=== PATIENT | female | born 1955 | race Caucasian/White ===

== ENCOUNTER 2017-05-15 23:35 | Inpatient (IN) | payer OTHER ==
[~2017-05-15] VITALS: Ht 167.6 cm; Wt 72.3 kg
[2017-05-15] MEDS: 1/2 NS + KCL 20 MEQ INJ 1,000 ML IV SCH (00:15)
[~2017-05-15 23:35] MED LIST: ACETAMINOPHEN 325 MG TAB PO PRN; ALBUAER3 INH; HYDROmorphone HCL PF 1 MG/ML VIAL IV PUSH PRN; MAGNESIUM HYDROXIDE SUSP 30 ML CUP PO PRN; NALOXONE HCL 0.4 MG/ML AMP IV PRN; ONDANSETRON HCL 4 MG/2 ML VIAL IVP PRN; RESP: ALBUTEROL 2.5 MG/IPRATROPIUM 0.5 MG NEB (PRN) NEB; SODIUM CHLORIDE 0.9% FLUSH 10 ML FLUSH IV FLUSH PRN; SPIRCAP INH; TEMAZEPAM 15 MG CAP PO PRN
[2017-05-16] VITALS (7 sets, daily range): BP systolic 114–141; BP diastolic 60–77; PULSE 56–89; RESP 16–18; TEMP 95.4–97.4; O2SAT 95–97
[2017-05-16 08:12] LABS: AUTOMATED NEUTROPHIL # 1.8 TH/MM3 (1.8-7.7); BASOPHIL % 1.2 % (0.0-2.0); EOSINOPHIL # 0.1 TH/MM3 (0-0.4); EOSINOPHIL % 2.9 % (0.0-4.0); HEMATOCRIT 39.7 % (35.0-46.0); HEMO FLAGS DIFF FINAL; LYMPH % 30.3 % (9.0-44.0); MEAN CELL VOLUME 94.9 FL (80.0-100.0); MEAN CORPUSCULAR HEMOGLOBIN 33.1 PG (27.0-34.0); MEAN CORPUSCULAR HGB CONC 34.9 % (32.0-36.0); MONO % 11.1 % (0.0-8.0); NEUT % 54.5 % (16.0-70.0); PLATELET COUNT 189 TH/MM3 (150-450); RED BLOOD COUNT 4.18 MIL/MM3 (4.00-5.30); RED CELL DISTRIBUTION WIDTH 13.3 % (11.6-17.2); WHITE BLOOD COUNT 3.3 TH/MM3 (4.0-11.0)
[2017-05-16 08:49] LABS: BICARBONATE 26.8 MEQ/L (21.0-32.0); POTASSIUM 3.8 MEQ/L (3.5-5.1)
[2017-05-16 08:53] LABS: INDIRECT BILIRUBIN 1.1 MG/DL (0.0-0.8); TOTAL BILIRUBIN ADULT 3.2 MG/DL (0.2-1.0)
[2017-05-16] MEDS: SODIUM CHLORIDE 0.9% FLUSH 10 ML FLUSH IV FLUSH SCH ×2 (09:00→21:00)
--- NOTE | 2017-05-16 09:08 | RADRPT ---
EXAM DATE/TIME: 05/16/2017 08:10 [facility] COMPARISON: CT ABDOMEN & PELVIS W CONTRAST, May 15, 2017, 20:15. INDICATIONS : Obstruction. MEDICAL HISTORY : None. SURGICAL HISTORY : Tonsillectomy. ENCOUNTER: Initial ACUITY: 1 day PAIN SCORE: 5/10 LOCATION: Upper abdomen TECHNIQUE: Multiplanar, multisequence magnetic resonance imaging of the abdomen was performed. High-resolution 3D dataset was utilized to reconstruct maximum-intensity projection (MIP) images. FINDINGS: INTRAHEPATIC BILE DUCTS: Within normal limits. No significant anatomical variant is present. EXTRAHEPATIC BILE DUCTS: The common bile duct measures 5-6mm No stone or filling defect is identified. GALLBLADDER: Demonstrates cholelithiasis with gallbladder wall thickening. LIVER: Normal size and signal intensity. No concerning liver lesion is identified on this non-contrast exam. Hepatic cysts. PANCREAS: The main pancreatic duct is normal in size. There is no significant anatomical variant. Signal inte nsity is within normal limits. No mass is visualized on this non-contrast exam. OTHER: The remaining visualized structures demonstrate no acute abnormality on this non-contrast exam. Small bilateral renal cysts. CONCLUSION: 1. Cholelithiasis with gallbladder wall thickening. 2. No intra-or extrahepatic delayed ductal dilatation. 3. Hepatic and bilateral renal cysts. Cirilo Helms MD on May 16, 2017 at 9:01 Board Certified Radiologist. This report was verified electronically.
[2017-05-16] MEDS: TIOTROPIUM BROMIDE 18 MCG INH INH SCH (09:43)
[2017-05-16] MEDS: 1/2 NS + KCL 20 MEQ INJ 1,000 ML IV SCH ×2 (10:18→21:50)
--- NOTE | 2017-05-16 11:42 | HHI.HP ---
HPI Service CP Hospitalists Primary Care Physician No Primary Care Physician Admission Diagnosis Abdominal pain, elevated LFTs Chief Complaint: Abdominal pain History of Present Illness Ms. Levin is a pleasant 61 y/o female with COPD, chronic tobacco use, and chronic alcohol use. Pt presented to the ED at [facility] ED on 05/15/17 with complaints of abdominal pain that began yesterday around noon. She states that she had eaten an omelet yesterday morning around 10AM and felt fine up until about lunch time and she started having some mid to upper abdominal bloating and pressure-like discomfort. She states that she tried taking some Prilosec and gas pills but did not have much relief. She states that she had some minimal relief with belching. Pt denies any nausea/vomiting, diarrhea, constipation, melena or BRBPR. The pain was constant for several hours and this prompted her to come to the ED for further evaluation. Her labs in the ED noted elevated LFTs with Tbili 2.0, AST 755, ALT 404, AlkPhos 195. CT Abd/pelvis was obtained which noted periportal edema versus intrahepatic biliary distension, no obvious cause for obstruction. Pt was transferred to [facility] for further evaluation and GI consultation. Her repeat labs today with noted Tbili 3.2, DBili 2.1, AST 740, ALT 632, AlkPhos 233. MRCP noted cholelithiasis with gallbladder wall thickening but no intra-or extrahepatic delayed ductal dilatation, and hepatic and bilateral renal cysts. Pt reports that since she received pain medication in the ED she has not had any further abdominal pain. Pt is anxious to eat something. Review of Systems Constitutional: DENIES: Fever, Chills Eyes: DENIES: Vision loss Ears, nose, mouth, throat: DENIES: Hearing loss Respiratory: DENIES: Shortness of breath Cardiovascular: DENIES: Chest pain, Palpitations Gastrointestinal: COMPLAINS OF: Abdominal pain, DENIES: Black stools, Bloody stools, Diarrhea, Nausea, Reflux, Vomiting Genitourinary: DENIES: Urinary incontinence, Dysuria Musculoskeletal: DENIES: Back pain, Neck pain Integumentary: DENIES: Rash Neurologic: DENIES: Headache, Localized weakness Psychiatric: DENIES: Confusion Past Family Social History Past Medical History Alcohol abuse Tobacco abuse COPD Past Surgical History Tonsillectomy Reported Medications Spiriva Handihaler (Tiotropium Inh) 18 Mcg Cap 18 Mcg INH DAILY 1 capsule = 18 mcg Proair Hfa 8.5 GM Inh (Albuterol Sulfate) 90 Mcg/Act Aer 1 Puff INH Q4H PRN 108 mcg/actuation Allergies: Coded Allergies: No Known Allergies (Unverified , 05/15/17) Family History Noncontributory Social History (+)Alcohol abuse, pt drinks 2-3 vodka drinks daily, for many years (+)Tobacco use, 1ppd since age 14 Denies any illicit drug use Pt is from [place], she has lived in [place] for 9 years. 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 HEENT: Atraumatic. Normocephalic. No temporal or scalp tenderness. No scleral icterus. Airway patent. NECK: Trachea midline, supple, nontender. CARDIO: Regular. RESP: CTA bilaterally. No wheezes, rales, or rhonchi. ABD: +BS, soft, non-tender, nondistended. EXT: Extremities without clubbing, cyanosis, or edema. NEURO: Awake and alert. Motor and sensory grossly within normal limits. Normal speech. Laboratory Laboratory Tests Test 05/16/17 07:40 White Blood Count 3.3 Red Blood Count 4.18 Hemoglobin 13.8 Hematocrit 39.7 Mean Corpuscular Volume 94.9 Mean Corpuscular Hemoglobin 33.1 Mean Corpuscular Hemoglobin 34.9 Concent Red Cell Distribution Width 13.3 Platelet Count 189 Mean Platelet Volume 8.1 Neutrophils (%) (Auto) 54.5 Lymphocytes (%) (Auto) 30.3 Monocytes (%) (Auto) 11.1 Eosinophils (%) (Auto) 2.9 Basophils (%) (Auto) 1.2 Neutrophils # (Auto) 1.8 Lymphocytes # (Auto) 1.0 Monocytes # (Auto) 0.4 Eosinophils # (Auto) 0.1 Basophils # (Auto) 0.0 CBC Comment DIFF FINAL Differential Comment Sodium Level 140 Potassium Level 3.8 Chloride Level 107 Carbon Dioxide Level 26.8 Anion Gap 6 Blood Urea Nitrogen 10 Creatinine 0.99 Estimat Glomerular Filtration 57 Rate Random Glucose 83 Calcium Level 7.6 Total Bilirubin 3.2 Direct Bilirubin 2.1 Indirect Bilirubin 1.1 Aspartate Amino Transf 740 (AST/SGOT) Alanine Aminotransferase 632 (ALT/SGPT) Alkaline Phosphatase 233 Total Protein 5.8 Albumin 3.2 Result Diagram: 05/16/17 0740 05/16/17 0740 Imaging Last Impressions Cholangiopancreatography MRI 05/16/17 0000 Signed Impressions: Service Date/Time: Thursday, May 16, 2017 08:10 - CONCLUSION: 1. Cholelithiasis with gallbladder wall thickening. 2. No intra-or extrahepatic delayed ductal dilatation. 3. Hepatic and bilateral renal cysts. Cirilo Helms MD Septic Shock Reassessment Heart: Regular rate and rhythm Lungs: Clear Skin: Warm Assessment and Plan Problem List: (1) Abdominal pain Status: Acute Plan: - Pt 61 y/o female with COPD, chronic tobacco use, and chronic alcohol use who presented to the ED at [facility] ED on 05/15/17 with complaints of abdominal pain that began yesterday around noon. - Labs in the ED noted elevated LFTs with Tbili 2.0, AST 755, ALT 404, AlkPhos 195. - CT Abd/pelvis (05/15) --> periportal edema versus intrahepatic biliary distension, no obvious cause for obstruction. - Pt was transferred to [facility] for further evaluation and GI consultation. - Repeat labs today with noted Tbili 3.2, DBili 2.1, AST 740, ALT 632, AlkPhos 233. - MRCP (05/16)--> cholelithiasis with gallbladder wall thickening but no intra- or extrahepatic delayed ductal dilatation, and hepatic and bilateral renal cysts. - Pt reports that since she received pain medication in the ED she has not had any further abdominal pain. - GI is consulted. - General Surgery is consulted - Elevated LFTs and abd pain many be related to cholecystitis in the setting of chronic alcohol abuse vs. acute alcoholic hepatitis vs. viral hepatitis vs. autoimmune hepatitis vs. other. - Check Viral hepatitis panel - GB US - Cont. IVF and NPO status for now until pt is evaluated by GI today. - Had a long discussion with the pt about alcohol cessation. - DT precautions. Ativan PRN. MVI/Folic acid/Thiamine - Monitor LFTs closely - Supportive care - DVT prophylaxis (2) Elevated LFTs Status: Acute Plan: - See above. (3) Alcohol abuse Status: Chronic Plan: - See above. (4) Tobacco abuse Status: Chronic Plan: - Tobacco cessation discussed - Pt does not want a nicotine patch at this time. Assessment and Plan Patient examined. Assessment and plan formulated with Yuliana Garcia PA-C. I agree with the above. - Case d/w Dr. Dougherty (05/16/17) - MRCP (05/16/17) --> no indication of choledocholithiasis, cholelithiasis with GB wall thickening - GBUS (05/16/17) --> cholelithiasis, GB wall thickening - repeat LFTs 05/17 - continue clear liquids - if LFTs remain elevated, pt may need ERCP Physician Certification 2 Midnight Certification Type: Admission for Inpatient Services Order for Inpatient Services The services are ordered in accordance with Medicare regulations or non- Medicare payer requirements, as applicable. In the case of services not specified as inpatient-only, they are appropriately provided as inpatient services in accordance with the 2-midnight benchmark. Estimated LOS (days): 3 3 days is the estimated time the patient will need to remain in the hospital, assuming treatment plan goals are met and no additional complications. Post-Hospital Plan: Home Yuliana Garcia May 16, 2017 11:42 Jona Ojeda DO May 16, 2017 15:33
[2017-05-16] MEDS ORDERED: LORazepam 1 MG TAB PO PRN (11:45)
[2017-05-16] MEDS: THIAMINE HCL 100 MG TAB PO SCH (12:14)
[2017-05-16] MEDS: MULTIVITAMIN TAB PO SCH (12:14)
[2017-05-16] MEDS: FOLIC ACID 1 MG TAB PO SCH (12:15)
--- NOTE | 2017-05-16 12:16 | PD.CONS ---
HPI History of Present Illness This is a 61 year old female who came to the emergency room for evaluation of abdominal pain. She reports that her pain began suddenly around noon yesterday afternoon and she describes this as a moderate to severe pressure in her epigastric area that radiates across her upper abdomen into her back, with more discomfort in her right upper quadrant. She denies any associated nausea, vomiting, heartburn. She has mild bloating, but denies diarrhea/constipation or any fevers or chills. There are no aggravating or alleviating factors. She states that for breakfast she had an omelette with green and red peppers, cheese , and sausage. She denies any known history of gallbladder disease but states she had a similar type pain a few weeks ago. She denies any history of known liver disease such as cirrhosis or hepatitis. She does drink vodka, usually on a daily basis with 2-3 drinks per day. (Lorri Nix) PFSH Past Medical History Alcohol abuse. COPD Past Surgical History Tonsillectomy (Lorri Nix) Coded Allergies: No Known Allergies (Unverified , 05/15/17) Medications Allergies Coded Allergies Type Severity Reaction Last Updated Verified No Known Allergies 05/15/17 No Active Scripts Medications Dose Route/Sig Days Date Category Dose Instructions Spiriva Handihaler (Tiotropium Inh) 18 Mcg Cap 18 Mcg INH DAILY 05/15/17 Reported 1 capsule = 18 mcg Proair Hfa 8.5 GM Inh (Albuterol Sulfate) 90 Mcg/Act Aer 1 Puff INH Q4H PRN 05/15/17 Reported 108 mcg/actuation Family History Mother had cervical cancer Father had DM Social History Smokes 1ppd since age 14 2-3 drinks of Vodka daily (Lorri Nix) Review of Systems Constitutional: COMPLAINS OF: Fatigue, DENIES: Fever, Weight loss, Chills Respiratory: COMPLAINS OF: Cough Cardiovascular: DENIES: Chest pain Gastrointestinal: COMPLAINS OF: Abdominal pain, DENIES: Black stools, Bloody stools, Constipation, Diarrhea, Nausea, Vomiting, Swelling of Abdomen, Heartburn , Hematemesis Musculoskeletal: DENIES: Joint pain Integumentary: DENIES: Jaundice Hematologic/lymphatic: DENIES: Bruising Psychiatric: DENIES: Confusion (Lorri Nix) GI Exam Vitals I&O Vital Signs Date Time Temp Pulse Resp B/P Pulse Ox O2 Delivery O2 Flow Rate FiO2 05/16/17 08:00 95.4 56 17 141/72 95 05/16/17 04:00 96.4 56 16 120/76 96 05/16/17 01:45 Room Air 05/16/17 00:00 97.4 89 17 114/75 97 I/O 05/15/17 05/15/17 05/15/17 05/16/17 05/16/17 05/16/17 07:00 15:00 23:00 07:00 15:00 23:00 Intake Total 456 ml Balance 456 ml Intake Oral 0 ml IV Total 456 ml # Voids 1 # Bowel Movements 0 Imaging Last Impressions Cholangiopancreatography MRI 05/16/17 0000 Signed Impressions: Service Date/Time: Tuesday, May 16, 2017 08:10 - CONCLUSION: 1. Cholelithiasis with gallbladder wall thickening. 2. No intra-or extrahepatic delayed ductal dilatation. 3. Hepatic and bilateral renal cysts. Cirilo Helms MD Laboratory Test 05/16/17 07:40 White Blood Count 3.3 TH/MM3 Red Blood Count 4.18 MIL/MM3 Hemoglobin 13.8 GM/DL Hematocrit 39.7 % Mean Corpuscular Volume 94.9 FL Mean Corpuscular Hemoglobin 33.1 PG Mean Corpuscular Hemoglobin 34.9 % Concent Red Cell Distribution Width 13.3 % Platelet Count 189 TH/MM3 Mean Platelet Volume 8.1 FL Neutrophils (%) (Auto) 54.5 % Lymphocytes (%) (Auto) 30.3 % Monocytes (%) (Auto) 11.1 % Eosinophils (%) (Auto) 2.9 % Basophils (%) (Auto) 1.2 % Neutrophils # (Auto) 1.8 TH/MM3 Lymphocytes # (Auto) 1.0 TH/MM3 Monocytes # (Auto) 0.4 TH/MM3 Eosinophils # (Auto) 0.1 TH/MM3 Basophils # (Auto) 0.0 TH/MM3 CBC Comment DIFF FINAL Differential Comment Sodium Level 140 MEQ/L Potassium Level 3.8 MEQ/L Chloride Level 107 MEQ/L Carbon Dioxide Level 26.8 MEQ/L Anion Gap 6 MEQ/L Blood Urea Nitrogen 10 MG/DL Creatinine 0.99 MG/DL Estimat Glomerular Filtration 57 ML/MIN Rate Random Glucose 83 MG/DL Calcium Level 7.6 MG/DL Total Bilirubin 3.2 MG/DL Direct Bilirubin 2.1 MG/DL Indirect Bilirubin 1.1 MG/DL Aspartate Amino Transf 740 U/L (AST/SGOT) Alanine Aminotransferase 632 U/L (ALT/SGPT) Alkaline Phosphatase 233 U/L Total Protein 5.8 GM/DL Albumin 3.2 GM/DL Physical Examination HEENT: Normocephalic; atraumatic; no jaundice. CHEST: CTA CARDIAC: RRR ABDOMEN: Soft, nondistended, epigastric, ruq tenderness; no hepatosplenomegaly ; bowel sounds are present in all four quadrants. EXTREMITIES: No clubbing, cyanosis, or edema. SKIN: Normal; no rash; no jaundice. 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 (Lorri Nix) Assessment and Plan Plan ASSESSMENT: - Abdominal pain with cholelithiasis, elevated LFTs. Pain consistent with GB etiology. Denies any known history of GB disease, but did have a similar episode a few weeks ago. MRCP (05/16/17)----> 1. Cholelithiasis with gallbladder wall thickening. 2. No intra-or extrahepatic delayed ductal dilatation. 3. Hepatic and bilateral renal cysts. There were no CBD stones on imaging, although labs consistent with obstruction and are slightly worse today. Still has epigastric discomfort. RUQ US pending. Hepatitis panel pending. Okay for clears from GI standpoint, but will need to be NPO after MN. If LFTs remain elevated tomorrow, will likely need ERCP. GS consulted. - Cholelithiasis. Pain consistent with GB etiology. States she also had another episode a few weeks ago GS consulted. - Elevated LFTs. Likely related to choledocholithiasis, ? unclear if this has passed. No obstruction on MRCP, but slight worsening of LFTs today. Of note, she also drinks ETOH almost daily. Hepatitis profile pending. - COPD per attending PLAN: - Okay for clear liquids - NPO after MN - PPI - Await GS evaluation - CBC, LFT in am - If LFTs remain elevated, will likely need ERCP - Supportive care - Further recommendations to follow based on results of above - PT seen and examined by Dr. Almonte and myself and this note is written on his behalf (Lorri Nix) Physician Comments Seen and examined, plan as above, will recheck LFT's in AM. Will follow up with you. (Navin Almonte MD) Lorri Nix May 16, 2017 12:16 Navin Almonte MD May 16, 2017 12:21
--- NOTE | 2017-05-16 13:45 | RADRPT ---
EXAM DATE/TIME: 05/16/2017 12:32 [facility] COMPARISON: No previous studies available for comparison. INDICATIONS : Abdominal pain. Elevated liver function tests. MEDICAL HISTORY : Chronic obstructive pulmonary disease. Alcohol use. Gastrointestinal polyps. SURGICAL HISTORY : Tonsillectomy. ENCOUNTER: Initial ACUITY: 2 days PAIN SCORE: 0/10 LOCATION: Right upper quadrant MEASUREMENTS: LIVER: 17.4 cm length COMMON DUCT: 3 mm RIGHT KIDNEY: 10.9 x 5.3 x 4.6 cm FINDINGS: LIVER: Normal echotexture without focal lesion or ductal dilatation. Hepatopedal flow. COMMON DUCT: No intraluminal mass or stone visualized. GALLBLADDER: Demonstrates a gallstone with some wall thickening and trace of pericholecystic fluid PANCREAS: The visualized portions are within normal limits. RIGHT KIDNEY: No evidence of hydronephrosis, stone, or mass. CONCLUSION: 1. Cholelithiasis with gallbladder wall thickening and trace of pericholecystic fluid. 2. The liver appears unremarkable. Cirilo Helms MD on May 16, 2017 at 13:42 Board Certified Radiologist. This report was verified electronically.
--- NOTE | 2017-05-16 17:52 | MB ---
cc: SAUL CA DATE OF CONSULTATION: 05/16/2017. HISTORY OF PRESENT ILLNESS: This is a 61-year-old female with a history of alcohol abuse who presented to the emergency room with a complaint of abdominal pain. The patient states the pain was located in the epigastrium. She was evaluated by the emergency room physician and found to have elevated liver function tests with thickening of the gallbladder and was admitted. Her bilirubin on initial evaluation was 2.0 and today it is 3.2 with elevated AST at 740 and ALT at 632. The patient had an MRCP today which showed thickened gallbladder wall with cholelithiasis. Surgical consult was requested. The patient has no pain today. She not receive any pain medications since last night. She has had no nausea or vomiting. No change in bowel habits or urinary symptoms. PAST MEDICAL HISTORY: Past medical history significant for above as well as COPD. PAST SURGICAL HISTORY: Her past surgical history is negative except for tonsillectomy. MEDICATIONS AT HOME: She is on medication at home that include: 1. Spiriva. 2. ProAir. ALLERGIES: She has NO KNOWN DRUG ALLERGIES. SOCIAL HISTORY: She does smoke and she does drink alcohol daily. FAMILY HISTORY: Noncontributory. REVIEW OF SYSTEMS: Review of systems significant for above. All other 10-point review negative. PHYSICAL EXAMINATION: GENERAL: On exam she is laying in bed in no acute distress. HEAD, EYES, EARS, NOSE, THROAT: The pupils are equal and reactive. Sclera anicteric. Trachea is midline. LUNGS: Respirations clear. CARDIOVASCULAR: Regular. GASTROINTESTINAL: Abdomen soft and nontender. MUSCULOSKELETAL: No deformities. NEUROLOGIC: Nonfocal. LABORATORY DATA: The patient's white blood cell count is 3.3 with neutrophils of 54. ASSESSMENT: This is a patient with cholelithiasis, questionable symptomatic. The patient has a bilirubin and liver function tests that are increasing from yesterday to today, though the MRCP is negative for hepatic duct stones. RECOMMENDATIONS: We recommend following the patient's liver function tests and if they continue to increase, will need ERCP. The patient can continue on a liquid diet. Will follow. MD SCOTT Griffin/JCC /5:32 PM /5:43 PM
[2017-05-17 02:23] LABS: AUTOMATED NEUTROPHIL # 2.3 TH/MM3 (1.8-7.7); BASOPHIL % 0.9 % (0.0-2.0); EOSINOPHIL # 0.1 TH/MM3 (0-0.4); HEMATOCRIT 40.5 % (35.0-46.0); HEMO FLAGS DIFF FINAL; LYMPH % 34.6 % (9.0-44.0); LYMPHOCYTE # 1.5 TH/MM3 (1.0-4.8); MEAN CELL VOLUME 97.1 FL (80.0-100.0); MEAN CORPUSCULAR HGB CONC 33.9 % (32.0-36.0); NEUT % 53.5 % (16.0-70.0); PLATELET COUNT 177 TH/MM3 (150-450); RED BLOOD COUNT 4.17 MIL/MM3 (4.00-5.30); RED CELL DISTRIBUTION WIDTH 13.3 % (11.6-17.2); WHITE BLOOD COUNT 4.3 TH/MM3 (4.0-11.0)
[2017-05-17 02:24] LABS: PROTHROMBIN TIME - PATIENT 11.1 SEC (9.8-11.6)
[2017-05-17 02:26] LABS: ALT (GPT) 454 U/L (10-53); ANION GAP 8 MEQ/L (5-15); AST (GOT) 218 U/L (15-37); BLOOD UREA NITROGEN 9 MG/DL (7-18); CHLORIDE 110 MEQ/L (98-107); GLOMERULAR FILTRATION RATE 67 ML/MIN (>89); POTASSIUM 3.9 MEQ/L (3.5-5.1); SODIUM (NA) 144 MEQ/L (136-145)
[2017-05-17 02:43] LABS: ALKALINE PHOSPHATASE 211 U/L (45-117); TOTAL BILIRUBIN ADULT 0.7 MG/DL (0.2-1.0)
[2017-05-17 07:53] VITALS: BP 151/65; PULSE 56; RESP 17; TEMP 95.7; O2SAT 96
[2017-05-17] MEDS: TIOTROPIUM BROMIDE 18 MCG INH INH SCH (08:00)
[2017-05-17] MEDS: MULTIVITAMIN TAB PO SCH (08:07)
[2017-05-17] MEDS: SODIUM CHLORIDE 0.9% FLUSH 10 ML FLUSH IV FLUSH SCH ×2 (08:07→21:00)
[2017-05-17] MEDS: THIAMINE HCL 100 MG TAB PO SCH (08:07)
[2017-05-17] MEDS: FOLIC ACID 1 MG TAB PO SCH (08:07)
[2017-05-17] MEDS: 1/2 NS + KCL 20 MEQ INJ 1,000 ML IV SCH ×2 (10:15→21:40)
[2017-05-17 11:37] VITALS: BP 132/84; PULSE 53; RESP 17; TEMP 96.3; O2SAT 96
--- NOTE | 2017-05-17 13:45 | HHI.PR ---
Subjective Remarks No new complaints. Pt denies abdominal pain. No n/v. Pt is eager to eat. Objective Vitals Vital Signs Date Time Temp Pulse Resp B/P (MAP) Pulse Ox O2 Delivery O2 Flow Rate FiO2 05/17/17 11:37 96.3 53 17 132/84 (100) 96 05/17/17 07:53 95.7 56 17 151/65 (93) 96 05/17/17 07:08 Room Air 05/16/17 23:31 96.9 60 17 130/60 (83) 95 05/16/17 19:58 96.7 62 17 115/68 (84) 95 05/16/17 16:00 96.2 58 18 137/77 (97) 96 Result Diagram: 05/17/1710405/17/17 010 Imaging Last Impressions Gall Bladder Ultrasound 05/16/17 0000 Signed Impressions: Service Date/Time: Tuesday, May 16, 2017 12:32 - CONCLUSION: 1. Cholelithiasis with gallbladder wall thickening and trace of pericholecystic fluid. 2. The liver appears unremarkable. Cirilo Helms MD Cholangiopancreatography MRI 05/16/17 0000 Signed Impressions: Service Date/Time: Tuesday, May 16, 2017 08:10 - CONCLUSION: 1. Cholelithiasis with gallbladder wall thickening. 2. No intra-or extrahepatic delayed ductal dilatation. 3. Hepatic and bilateral renal cysts. Cirilo Helms MD Objective Remarks GENERAL: This is a well-nourished, well-developed patient, in no apparent distress. CARDIOVASCULAR: Regular rate and rhythm without murmurs, gallops, or rubs. RESPIRATORY: Clear to auscultation. Breath sounds equal bilaterally. No wheezes , rales, or rhonchi. GASTROINTESTINAL: Abdomen soft, non-tender, nondistended. Normal active bowel sounds MUSCULOSKELETAL: Extremities without clubbing, cyanosis, or edema. NEURO: Alert & Oriented x4 to person, place, time, situation. Moves all ext x4 A/P Problem List: (1) Abdominal pain ICD Codes: R10.9 - Unspecified abdominal pain Status: Acute Plan: - comgmt with GI & General Surgery - Pt 61 y/o female with COPD, chronic tobacco use, and chronic alcohol use who presented to the ED at [facility] ED on 05/15/17 with complaints of abdominal pain that began yesterday around noon. - Pt was transferred to [facility] for further evaluation and GI consultation. - CT Abd/pelvis (05/15) --> periportal edema versus intrahepatic biliary distension, no obvious cause for obstruction. - MRCP (05/16)--> cholelithiasis with gallbladder wall thickening but no intra- or extrahepatic delayed ductal dilatation, and hepatic and bilateral renal cysts. - Total Bili 3.2 (05/16), 0.7 (05/17) - AST 746 (05/16), 218 (05/17) - ALT 632 (05/16), 454 (05/17) - Alk Phos 233 (05/16), 211 (05/17) - Elevated LFTs and abd pain many be related to cholecystitis in the setting of chronic alcohol abuse vs. acute alcoholic hepatitis vs. viral hepatitis vs. autoimmune hepatitis vs. other. - may need cholecystectomy in the future, defer to general surgery - viral hepatitis panel --> pending - advance diet to clear - repeat BMP, LFTs in AM - Case d/w Dr. Almonte (05/17) --> NO ERCP at this time - Had a long discussion with the pt about alcohol cessation. 05/16 and 05/17 - DT precautions. Ativan PRN. MVI/Folic acid/Thiamine - Monitor LFTs closely - Supportive care - DVT prophylaxis (2) Elevated LFTs ICD Codes: R79.89 - Other specified abnormal findings of blood chemistry Status: Acute Plan: - See above. (3) Alcohol abuse ICD Codes: F10.10 - Alcohol abuse, uncomplicated Status: Chronic Plan: - See above. (4) Tobacco abuse ICD Codes: Z72.0 - Tobacco use Status: Chronic Plan: - Tobacco cessation discussed - Pt does not want a nicotine patch at this time. Problem Qualifiers (1) Abdominal pain: Qualified Codes: R10.9 - Unspecified abdominal pain Jona Ojeda DO May 17, 2017 13:45
[2017-05-17 15:22] VITALS: BP 135/73; PULSE 54; RESP 18; TEMP 96.4; O2SAT 96
[2017-05-17 20:50] VITALS: BP 124/76; PULSE 70; RESP 16; TEMP 96; O2SAT 94
[2017-05-18 00:26] VITALS: BP 135/71; PULSE 69; RESP 16; TEMP 97.7; O2SAT 98
[2017-05-18 05:35] LABS: BICARBONATE 29.9 MEQ/L (21.0-32.0); MAGNESIUM 2.1 MG/DL (1.5-2.5)
[2017-05-18 05:38] LABS: INDIRECT BILIRUBIN 0.3 MG/DL (0.0-0.8); TOTAL BILIRUBIN ADULT 0.5 MG/DL (0.2-1.0)
[2017-05-18 07:40] VITALS: BP 145/72; PULSE 55; RESP 17; TEMP 96.8; O2SAT 95
[2017-05-18] MEDS: MULTIVITAMIN TAB PO SCH (08:43)
[2017-05-18] MEDS: FOLIC ACID 1 MG TAB PO SCH (08:43)
[2017-05-18] MEDS: THIAMINE HCL 100 MG TAB PO SCH (08:43)
[2017-05-18] MEDS: TIOTROPIUM BROMIDE 18 MCG INH INH SCH (08:44)
[2017-05-18] MEDS: SODIUM CHLORIDE 0.9% FLUSH 10 ML FLUSH IV FLUSH SCH (08:48)
[2017-05-18] MEDS: 1/2 NS + KCL 20 MEQ INJ 1,000 ML IV SCH (08:48)
--- NOTE | 2017-05-18 11:04 | HHI.PR ---
Subjective Remarks no pain [place] regular food her ride is here and she wants to go home. Objective Vitals heart reg lung cta abd s/nt ext no edema Vital Signs Date Time Temp Pulse Resp B/P (MAP) Pulse Ox O2 Delivery O2 Flow Rate FiO2 05/18/17 07:40 96.8 55 17 145/72 (96) 95 05/18/17 00:26 97.7 69 16 135/71 (92) 98 05/17/17 20:50 96.0 70 16 124/76 (92) 94 05/17/17 15:22 Room Air 05/17/17 15:22 96.4 54 18 135/73 (93) 96 05/17/17 11:37 96.3 53 17 132/84 (100) 96 Result Diagram: 05/17/17 0105 05/18/17 0434 Imaging Last Impressions Gall Bladder Ultrasound 05/16/17 0000 Signed Impressions: Service Date/Time: Tuesday, May 16, 2017 12:32 - CONCLUSION: 1. Cholelithiasis with gallbladder wall thickening and trace of pericholecystic fluid. 2. The liver appears unremarkable. Cirilo Helms MD Cholangiopancreatography MRI 05/16/17 0000 Signed Impressions: Service Date/Time: Tuesday, May 16, 2017 08:10 - CONCLUSION: 1. Cholelithiasis with gallbladder wall thickening. 2. No intra-or extrahepatic delayed ductal dilatation. 3. Hepatic and bilateral renal cysts. Cirilo Helms MD A/P Problem List: (1) Abdominal pain ICD Codes: R10.9 - Unspecified abdominal pain Status: Acute Plan: - comgmt with GI & General Surgery - Pt 61 y/o female with COPD, chronic tobacco use, and chronic alcohol use who presented to the ED at [facility] ED on 05/15/17 with complaints of abdominal pain that began yesterday around noon. - Pt was transferred to [facility] for further evaluation and GI consultation. - CT Abd/pelvis (05/15) --> periportal edema versus intrahepatic biliary distension, no obvious cause for obstruction. - MRCP (05/16)--> cholelithiasis with gallbladder wall thickening but no intra- or extrahepatic delayed ductal dilatation, and hepatic and bilateral renal cysts. - Total Bili 3.2 (05/16), 0.7 (05/17) - AST 746 (05/16), 218 (05/17) - ALT 632 (05/16), 454 (05/17) - Alk Phos 233 (05/16), 211 (05/17) - Pt LFT trending down and tolerating diet. no pain - d/c and f/u with gen surg for possible elective lap bryce pt has cholelithiasis and may have passed a stone. (2) Elevated LFTs ICD Codes: R79.89 - Other specified abnormal findings of blood chemistry Status: Acute Plan: - See above. (3) Alcohol abuse ICD Codes: F10.10 - Alcohol abuse, uncomplicated Status: Chronic Plan: - See above. (4) Tobacco abuse ICD Codes: Z72.0 - Tobacco use Status: Chronic Plan: - Tobacco cessation discussed - Pt does not want a nicotine patch at this time. Problem Qualifiers (1) Abdominal pain: Qualified Codes: R10.9 - Unspecified abdominal pain Richard Betancourt MD May 18, 2017 11:04
--- NOTE | 2017-05-18 11:16 | HHI.DCPOC ---
Discharge Care Plan Diagnosis: (1) Elevated LFTs (2) Biliary obstruction Goals to Promote Your Health * To prevent worsening of your condition and complications * To maintain your health at the optimal level Directions to Meet Your Goals Take your medications as prescribed Follow your dietary instruction Follow activity as directed Keep your appointments as scheduled Take your immunizations and boosters as scheduled If your symptoms worsen call your PCP, if no PCP go to Urgent Care Center or Emergency Room Smoking is Dangerous to Your Health. Avoid second hand smoke Call the 24-hour hour crisis hotline for domestic abuse at Richard Betancourt MD May 18, 2017 11:16
[2017-05-18 11:30] VITALS: BP 112/65; PULSE 55; RESP 17; TEMP 96.6; O2SAT 93
== END 2017-05-18 12:53 | disposition home or self-care (01) | DRG 446 ==
LOC: NEDDLT 23:35 → N06B 23:37
PROVIDERS: ADMIT Hospitalist; ATTEND Hospitalist
DX: K80.21 Calculus of gallbladder without cholecystitis with obstruction (principal); N28.1 Cyst of kidney, acquired; J44.9 Chronic obstructive pulmonary disease, unspecified; R79.89 Other specified abnormal findings of blood chemistry; F17.210 Nicotine dependence, cigarettes, uncomplicated; F10.10 Alcohol abuse, uncomplicated
CPT/HCPCS: 74177; 74181; 76377; 76705; 80048; 80053; 80074; 80076; 81001; 83605; 83690; 83735; 85025; 85610; 93005; 96361; 96365; 96375; J1885; J2405; J2543; J7030; Q9967